=== PATIENT | female | born 1945 | race Caucasian/White ===

== ENCOUNTER 2016-10-28 09:54 | Day surgery (SDC) | payer BC ==
[~2016-10-28] VITALS: Ht 157.5 cm; Wt 66.3 kg
[~2016-10-28 09:54] MED LIST: B-COMPLEX-VITA1 EACH PO; BIOTIN1000 MICRO PO; ELAVIL50 MG PO; EVISTA60 MG PO; PRAVACHOL40 MG PO; TOPROL XL25 MG PO; ULTRAM50 MG PO
[2016-10-28 10:36] VITALS: BP 148/84
[2016-10-28 13:45] VITALS: BP 178/85
[2016-10-28 14:18] VITALS: BP 164/82
== END 2016-10-28 14:30 | disposition home or self-care (01) ==
LOC: SDC 09:54
DX: H43.391 Other vitreous opacities, right eye (principal); H35.371 Puckering of macula, right eye; H43.811 Vitreous degeneration, right eye; I10 Essential (primary) hypertension; M79.7 Fibromyalgia; M19.90 Unspecified osteoarthritis, unspecified site
CPT/HCPCS: J0690; J1100; J2795